=== PATIENT | female | born 1950 | race Caucasian/White ===

== ENCOUNTER → 2020-04-23 12:56 | Outpatient (BNVA) | payer MEDICARE, OTHER, SELFPAY | PROVIDERS: Family Provider Internal Medicine; PCP Internal Medicine; Visit Provider Nurse Practitioner | DX: L03.90 Cellulitis, unspecified (principal); A28.0 Pasteurellosis; W55.01XA Bitten by cat, initial encounter | CPT/HCPCS: 73130 ==